=== PATIENT | female | born 1960 | race Caucasian/White ===

== ENCOUNTER 2016-07-27 08:21 | Inpatient (IN) | payer OTHER ==
[~2016-07-27] VITALS: Ht 165.1 cm; Wt 99.5 kg
[2016-07-27] VITALS (7 sets, daily range): BP systolic 125–168; BP diastolic 61–96; PULSE 62–98; RESP 16–25; TEMP 97.1–98; O2SAT 91–99
[~2016-07-27 08:21] MED LIST: ASPI81TA11 PO; MEDR4PAK3 PO; NAPR550 PO; ROBA750T3 PO; TRAM50 PO
--- NOTE | 2016-07-27 08:39 | PD ---
HPI Chief Complaint: Chest Pain Time Seen by Provider: 08:31 Travel History International Travel<30 days: No Contact w/Intl Traveler<30days: No Traveled to known affect area: No History of Present Illness HPI 55-year-old female here with complaint of chest pain. Patient states that she has been ill for approximately one week with "flulike symptoms". Describes nausea, vomiting, anorexia, chest congestion, cough, subjective fevers and chills. Overall the symptoms have improved and yesterday she was actually feeling close to back to normal. This morning she woke up with a burning epigastric discomfort that radiates up into the chest with nausea. No vomiting. The pain also radiates into the back and the left subscapular region. She denies any history of gastritis, pancreatitis, hepatobiliary pathology, peptic ulcer disease. No known history of cardiac pathology. Pain is currently 5 out of 10, burning in nature. Fairly constant. PFSH Past Medical History Diminished Hearing: No Kidney Stones: Yes Musculoskeletal: Yes (SCIATICA) Tetanus Vaccination: < 5 Years Menopausal: Yes Tubal Ligation: Yes Past Surgical History Appendectomy: Yes Section: Yes ( one) Tonsillectomy: Yes Other Surgery: Yes (BREAST AUGMENTATION) Social History Alcohol Use: No (SOCIALLY) Tobacco Use: Yes (10-12 CIGARETTES DAILY) Substance Use: No Allergies-Medications (Allergen,Severity, Reaction): Coded Allergies: Penicillin (Verified Allergy, Severe, EDEMA, 07/27/16) Reported Meds & Prescriptions Reported Meds & Active Scripts Active No Active Prescriptions or Reported Medications Review of Systems Except as stated in HPI: all other systems reviewed are Neg Physical Exam Narrative GENERAL: Obese female in no acute distress SKIN: Warm and dry. HEAD: Normocephalic. EYES: No scleral icterus. No injection or drainage. ENT: Mucous membranes pink and moist. NECK: Supple CARDIOVASCULAR: Regular rate and rhythm. No murmur appreciated. RESPIRATORY: No accessory muscle use. Clear to auscultation. Breath sounds equal bilaterally. GASTROINTESTINAL: Abdomen soft, epigastric and right upper quadrant tenderness to palpation without rebound or guarding. Obese. MUSCULOSKELETAL: Reproducible tenderness to palpation in the left subscapular region. Moves all extremity's normally without edema NEUROLOGICAL: Awake and alert. Normal speech. PSYCHIATRIC: Appropriate mood and affect; insight and judgment normal. Data Data Last Documented VS Vital Signs Date Time Temp Pulse Resp B/P Pulse Ox O2 Delivery O2 Flow Rate FiO2 07/27/16 09:01 78 20 133/69 98 07/27/16 08:26 97.8 Orders Electrocardiogram (07/27/16 08:34) Complete Blood Count With Diff (07/27/16 08:34) Comprehensive Metabolic Panel (07/27/16 08:34) Magnesium (Mg) (07/27/16 08:34) Prothrombin Time / Inr (Pt) (07/27/16 08:34) Act Partial Throm Time (Ptt) (07/27/16 08:34) Troponin I (07/27/16 08:34) Lipase (07/27/16 08:34) Chest, Single Ap (07/27/16 08:34) Ecg Monitoring (07/27/16 08:34) Bilateral Bp Monitoring (07/27/16 08:34) Iv Access Insert/Monitor (07/27/16 08:34) Oximetry (07/27/16 08:34) Aspirin Chew (Aspirin Chew) (07/27/16 08:45) Sodium Chloride 0.9% Flush (Ns Flush) (07/27/16 08:45) Morphine Inj (Morphine Inj) (07/27/16 08:45) Ondansetron Inj (Zofran Inj) (07/27/16 08:45) Pantoprazole Inj (Protonix Inj) (07/27/16 08:45) Pantoprazole Inj (Protonix Inj) (07/27/16 08:48) Ondansetron Inj (Zofran Inj) (07/27/16 08:48) Aspirin Chew (Aspirin Chew) (07/27/16 08:48) Morphine Inj (Morphine Inj) (07/27/16 08:49) Us Abdomen Gallbladder (07/27/16 ) Hepatitis Profile (07/27/16 09:18) Alcohol (Ethanol) (07/27/16 09:18) Morphine Inj (Morphine Inj) (07/27/16 09:30) Diphenhydramine Inj (Benadryl Inj) (07/27/16 09:30) Metoclopramide Inj (Reglan Inj) (07/27/16 09:30) NPO (07/27/16 09:23) Ciprofloxacin 400 Mg Premix (Cipro 400 M (07/27/16 10:30) Metronidazole 500 Mg Inj (Flagyl 500 Mg (07/27/16 10:30) Labs Laboratory Tests Test 07/27/16 07/27/16 08:44 09:30 White Blood Count 11.8 TH/MM3 Red Blood Count 5.45 MIL/MM3 Hemoglobin 15.6 GM/DL Hematocrit 46.1 % Mean Corpuscular Volume 84.5 FL Mean Corpuscular Hemoglobin 28.7 PG Mean Corpuscular Hemoglobin 33.9 % Concent Red Cell Distribution Width 14.1 % Platelet Count 436 TH/MM3 Mean Platelet Volume 6.7 FL Neutrophils (%) (Auto) 61.8 % Lymphocytes (%) (Auto) 19.1 % Monocytes (%) (Auto) 15.9 % Eosinophils (%) (Auto) 2.4 % Basophils (%) (Auto) 0.8 % Neutrophils # (Auto) 7.3 TH/MM3 Lymphocytes # (Auto) 2.3 TH/MM3 Monocytes # (Auto) 1.9 TH/MM3 Eosinophils # (Auto) 0.3 TH/MM3 Basophils # (Auto) 0.1 TH/MM3 CBC Comment DIFF FINAL Differential Comment Prothrombin Time 11.1 SEC Prothromb Time International 1.0 RATIO Ratio Activated Partial 29.4 SEC Thromboplast Time Sodium Level 135 MEQ/L Potassium Level 4.1 MEQ/L Chloride Level 98 MEQ/L Carbon Dioxide Level 29.0 MEQ/L Anion Gap 8 MEQ/L Blood Urea Nitrogen 9 MG/DL Creatinine 0.67 MG/DL Estimat Glomerular Filtration 91 ML/MIN Rate Random Glucose 103 MG/DL Calcium Level 8.6 MG/DL Magnesium Level 2.2 MG/DL Total Bilirubin 0.6 MG/DL Aspartate Amino Transf 510 U/L (AST/SGOT) Alanine Aminotransferase 503 U/L (ALT/SGPT) Alkaline Phosphatase 225 U/L Troponin I LESS THAN 0.02 NG/ML Total Protein 7.9 GM/DL Albumin 3.4 GM/DL Lipase 1295 U/L Ethyl Alcohol Level LESS THAN 3 MG/DL MDM Medical Decision Making Medical Screen Exam Complete: Yes Emergency Medical Condition: Yes Medical Record Reviewed: Yes Differential Diagnosis 55-year-old female here with approximately 2 hours of a burning epigastric discomfort radiated up into the chest and left subscapular region after one week of flulike symptoms. Differential includes gastritis, pancreatitis, hepatobiliary pathology, peptic ulcer disease, ACS, musculoskeletal and less likely PE or dissection. Narrative Course Patient placed on monitor, IV established and blood obtained. A twelve-lead EKG shows sinus rhythm without notable ST abnormalities, normal intervals. Patient was given 4 mg Zofran, 2 mg morphine, 324 mg aspirin, IV PPI. Portable chest x-ray was obtained that by my read shows no acute abnormalities. CBC, CMP , lipase, magnesium, troponin, coags obtained and notable for AST 510, ALT 503, alkaline phosphatase 225, lipase 1295. Patient denies again any history of hepatobiliary or pancreatic pathology. Hepatitis panel was added given her elevated LFTs as well as blood alcohol level. Patient so uncomfortable and treated with additional morphine, Benadryl, Reglan. Ultrasound of the gallbladder showed minimal sludge in the gallbladder with mild gallbladder wall thickening. No pericholecystic fluid or sonographic Graff sign. Patient was covered with Aravind Strauss for possible early cholecystitis and admitted for management of acute pancreatitis, GI consult, etc. Diagnosis Primary Impression: Acute pancreatitis Qualified Code: K85.90 - Acute pancreatitis without infection or necrosis, unspecified pancreatitis type Additional Impressions: Gallbladder sludge Thickening of wall of gallbladder Admitting Information Admitting Physician Requests: Admit Scripts No Active Prescriptions or Reported Meds Devorah Buitrago MD Jul 27, 2016 08:39
[2016-07-27] MEDS ORDERED: PANTOPRAZOLE SODIUM 40 MG VIAL IVP ONE (08:45)
[2016-07-27] MEDS ORDERED: ASPIRIN 81 MG CHEW TAB PO ONE (08:45)
[2016-07-27] MEDS ORDERED: ONDANSETRON HCL 4 MG/2 ML VIAL IVP ONE (08:45)
[2016-07-27] MEDS ORDERED: MORPHINE SULFATE 4 MG/ML INJ IV PUSH ONE ×2 (08:45→09:30)
[2016-07-27] MEDS ORDERED: PANTOPRAZOLE SODIUM 40 MG VIAL ONE (08:48)
[2016-07-27] MEDS ORDERED: ONDANSETRON HCL 4 MG/2 ML VIAL ONE (08:48)
[2016-07-27] MEDS ORDERED: ASPIRIN 81 MG CHEW TAB ONE (08:48)
[2016-07-27] MEDS ORDERED: MORPHINE SULFATE 4 MG/ML INJ ONE (08:49)
[2016-07-27] MEDS: SODIUM CHLORIDE 0.9% FLUSH 5 ML FLUSH IVF PRN ×2 (08:56→10:13)
[2016-07-27 08:57] LABS: AUTOMATED NEUTROPHIL # 7.3 TH/MM3 (1.8-7.7); BASOPHIL # 0.1 TH/MM3 (0-0.2); BASOPHIL % 0.8 % (0.0-2.0); EOSINOPHIL # 0.3 TH/MM3 (0-0.4); EOSINOPHIL % 2.4 % (0.0-4.0); HEMATOCRIT 46.1 % (35.0-46.0); HEMO FLAGS DIFF FINAL; LYMPH % 19.1 % (9.0-44.0); LYMPHOCYTE # 2.3 TH/MM3 (1.0-4.8); MEAN CELL VOLUME 84.5 FL (80.0-100.0); MEAN CORPUSCULAR HEMOGLOBIN 28.7 PG (27.0-34.0); MEAN CORPUSCULAR HGB CONC 33.9 % (32.0-36.0); MONO % 15.9 % (0.0-8.0); NEUT % 61.8 % (16.0-70.0); PLATELET COUNT 436 TH/MM3 (150-450); RED BLOOD COUNT 5.45 MIL/MM3 (4.00-5.30); RED CELL DISTRIBUTION WIDTH 14.1 % (11.6-17.2); WHITE BLOOD COUNT 11.8 TH/MM3 (4.0-11.0)
[2016-07-27 09:08] LABS: APTT (PATIENT) 29.4 SEC (24.3-30.1); PROTHROMBIN TIME - PATIENT 11.1 SEC (9.8-11.6)
[2016-07-27 09:12] LABS: ANION GAP 8 MEQ/L (5-15); AST (GOT) 510 U/L (15-37); CHLORIDE 98 MEQ/L (98-107); GLOMERULAR FILTRATION RATE 91 ML/MIN (>89); MAGNESIUM 2.2 MG/DL (1.5-2.5); POTASSIUM 4.1 MEQ/L (3.5-5.1); SODIUM (NA) 135 MEQ/L (136-145)
[2016-07-27 09:13] LABS: BLOOD UREA NITROGEN 9 MG/DL (7-18)
[2016-07-27 09:16] LABS: ALKALINE PHOSPHATASE 225 U/L (45-117); ALT (GPT) 503 U/L (10-53); TOTAL BILIRUBIN ADULT 0.6 MG/DL (0.2-1.0)
[2016-07-27] MEDS ORDERED: diphenhydrAMINE HCL 50 MG/ML VIAL IVP ONE (09:30)
[2016-07-27] MEDS ORDERED: METOCLOPRAMIDE HCL 10 MG/2 ML VIAL IVP ONE (09:30)
--- NOTE | 2016-07-27 09:32 | RADRPT ---
EXAM DATE/TIME: 07/27/2016 08:52 [facility] COMPARISON: CHEST SINGLE AP, August 24, 2014, 23:53. INDICATIONS : Chest pain. MEDICAL HISTORY : None. SURGICAL HISTORY : None. ENCOUNTER: Initial ACUITY: 1 day PAIN SCORE: 8/10 LOCATION: Bilateral chest FINDINGS: A single view of the chest demonstrates the lungs to be symmetrically aerated without evidence of mas s, infiltrate or effusion. The cardiomediastinal contours are unremarkable. Osseous structures are intact. CONCLUSION: No acute disease. Vargas Zuniga MD FACR on July 27, 2016 at 9:30 Board Certified Radiologist. This report was verified electronically.
--- NOTE | 2016-07-27 10:24 | RADRPT ---
EXAM DATE/TIME: 07/27/2016 09:45 [facility] COMPARISON: No previous studies available for comparison. INDICATIONS : Right upper quadrant pain. MEDICAL HISTORY : Renal calculi. SURGICAL HISTORY : Tubal ligation. section. Tonsillectomy. Appendectomy. Breast augmentation. ENCOUNTER: Initial ACUITY: 2 days PAIN SCORE: 5/10 LOCATION: Right upper quadrant MEASUREMENTS: LIVER: 18.1 cm length COMMON DUCT: 5 mm RIGHT KIDNEY: 9.6 x 5.3 x 5.4 cm FINDINGS: LIVER: Normal echotexture without focal lesion or ductal dilatation. COMMON DUCT: No intraluminal mass or stone visualized. GALLBLADDER: Minimal sludge in the gallbladder without stones. There is mild gallbladder wall thickening. PANCREAS: The visualized portions are within normal limits. RIGHT KIDNEY: No evidence of hydronephrosis, stone, or mass. CONCLUSION: Minimal sludge in the gallbladder with mild gallbladder wall thickening. There is no tenderness over the gallbladder. Vargas Zuniga MD FACR on July 27, 2016 at 10:21 Board Certified Radiologist. This report was verified electronically.
[2016-07-27] MEDS ORDERED: CIPROFLOXACIN 400 MG PREMIX 200 ML IV ONE (10:30)
[2016-07-27] MEDS ORDERED: metroNIDAZOLE 500 MG INJ 100 ML IV ONE (10:30)
[2016-07-27] MEDS ORDERED: NALOXONE HCL 0.4 MG/ML AMP IV PRN (10:45)
[2016-07-27] MEDS ORDERED: BISACODYL 10 MG SUPP PR PRN (10:45)
[2016-07-27] MEDS ORDERED: ACETAMINOPHEN 325 MG TAB PO PRN (10:45)
[2016-07-27] MEDS ORDERED: SODIUM CHLORIDE 0.9% FLUSH 5 ML FLUSH FLUSH PRN (10:45)
[2016-07-27] MEDS ORDERED: IOHEXOL 350 MG/ML 10 ML VIAL (for RAD DIAG) IV ONE (11:29)
--- NOTE | 2016-07-27 11:51 | RADRPT ---
EXAM DATE/TIME: 07/27/2016 11:12 [facility] COMPARISON: US ABDOMEN - GALLBLADDER, July 27, 2016, 9:45. INDICATIONS : Chest and abdomen pain. IV CONTRAST: 100 cc Omnipaque 350 (iohexol) IV ORAL CONTRAST: No oral contrast ingested. RADIATION DOSE: 9.96 CTDIvol (mGy) MEDICAL HISTORY : None SURGICAL HISTORY : Appendectomy. ENCOUNTER: Initial ACUITY: 1 day PAIN SCALE: 5/10 LOCATION: Abdomen. TECHNIQUE: Volumetric scanning of the abdomen was performed. Using automated exposure control and adjustment of the mA and/or kV according to patient size, radiation dose was kept as low as reasonably achievable to obtain optimal diagnostic quality images. FINDINGS: The lung bases are clear. Liver is free of focal defects. Spleen and pancreas are unremarkable. There is a gallstone in an abnormal gallbladder. There is gallbladder wall thickening with inflammat ory stranding evident suspicious for acute cholecystitis. There is symmetrical renal function. Small, less than 1 cm, apparent right renal cyst is noted. CONCLUSION: 1. CT scan would be consistent with an acute cholecystitis. Correlation is suggested. 2. There is no evidence for pancreatitis. Vargas Zuniga MD FACR on July 27, 2016 at 11:43 Board Certified Radiologist. This report was verified electronically.
[2016-07-27] MEDS: ONDANSETRON HCL 4 MG/2 ML VIAL IVP PRN ×2 (11:56→16:23)
[2016-07-27] MEDS: HYDROmorphone HCL PF 1 MG/ML VIAL IV PUSH PRN ×4 (11:57→23:16)
--- NOTE | 2016-07-27 14:31 | PD.CONS ---
General Surgery Consult Reason for consultation: Evaluate for cholecystitis. Patient is a 55-year-old lady who began feeling poorly approximately week ago; she attributed the initial symptoms to the flu with multiple episodes of nausea and vomiting minimal abdominal pain, and development of an upper respiratory tract infection. She had intermittent fevers during a period of time. She developed abdominal pain over the last 24 hours which has been centered in the mid abdomen and radiating straight through to her back. She has had no further nausea or vomiting. Past medical history significant for previous open appendectomy at age 14 as well as . She's had no major medical illnesses requiring hospitalization. He takes no medications. Her only known allergies to penicillin which causes a rash. Examination: patient is afebrile blood pressure and heart rate and normal. LUNGS: Clear to percussion and auscultation HEART: Regular rate and rhythm the ABDOMEN: The patient's abdomen is tender in the mid epigastrium with no guarding or rebound. She has minimal right upper quadrant tenderness. Last 24 hours Impressions Chest X-Ray 07/27/16 0834 Signed Impressions: Service Date/Time: Wednesday, July 27, 2016 08:52 - CONCLUSION: No acute disease. Vargas Zuniga MD FACR Gall Bladder Ultrasound 07/27/16 0000 Signed Impressions: Service Date/Time: Wednesday, July 27, 2016 09:45 - CONCLUSION: Minimal sludge in the gallbladder with mild gallbladder wall thickening. There is no tenderness over the gallbladder. Vargas Zuniga MD FACR Laboratory Tests Test 07/27/16 07/27/16 08:44 09:30 White Blood Count 11.8 TH/MM3 Red Blood Count 5.45 MIL/MM3 Hemoglobin 15.6 GM/DL Hematocrit 46.1 % Mean Corpuscular Volume 84.5 FL Mean Corpuscular Hemoglobin 28.7 PG Mean Corpuscular Hemoglobin 33.9 % Concent Red Cell Distribution Width 14.1 % Platelet Count 436 TH/MM3 Mean Platelet Volume 6.7 FL Neutrophils (%) (Auto) 61.8 % Lymphocytes (%) (Auto) 19.1 % Monocytes (%) (Auto) 15.9 % Eosinophils (%) (Auto) 2.4 % Basophils (%) (Auto) 0.8 % Neutrophils # (Auto) 7.3 TH/MM3 Lymphocytes # (Auto) 2.3 TH/MM3 Monocytes # (Auto) 1.9 TH/MM3 Eosinophils # (Auto) 0.3 TH/MM3 Basophils # (Auto) 0.1 TH/MM3 CBC Comment DIFF FINAL Differential Comment Prothrombin Time 11.1 SEC Prothromb Time International 1.0 RATIO Ratio Activated Partial 29.4 SEC Thromboplast Time Sodium Level 135 MEQ/L Potassium Level 4.1 MEQ/L Chloride Level 98 MEQ/L Carbon Dioxide Level 29.0 MEQ/L Anion Gap 8 MEQ/L Blood Urea Nitrogen 9 MG/DL Creatinine 0.67 MG/DL Estimat Glomerular Filtration 91 ML/MIN Rate Random Glucose 103 MG/DL Calcium Level 8.6 MG/DL Magnesium Level 2.2 MG/DL Total Bilirubin 0.6 MG/DL Aspartate Amino Transf 510 U/L (AST/SGOT) Alanine Aminotransferase 503 U/L (ALT/SGPT) Alkaline Phosphatase 225 U/L Troponin I LESS THAN 0.02 NG/ML Total Protein 7.9 GM/DL Albumin 3.4 GM/DL Lipase 1295 U/L Ethyl Alcohol Level LESS THAN 3 MG/DL Impression: 55-year-old lady with what appears to be gallstone pancreatitis. She has a mildly thick-walled gallbladder as well as sludge within the lumen with no evidence of stones. Her common bile duct is relatively normal at 5 mm. Plan: The patient will be given clear liquids today. Repeat laboratory work will be obtained in the morning. If she improves rapidly we may consider surgery this week, otherwise she will be discharged to be followed as an outpatient. Kvng Walton MD Jul 27, 2016 14:31
--- NOTE | 2016-07-27 14:34 | EKG ---
Date Performed: 07/27/2016 Time Performed: 08:29:21 PTAGE: 55 years EKG: Sinus rhythm NORMAL ECG PREVIOUS TRACING : 08/24/2014 23.41 Since previous tracing, no significant change noted DOCTOR: Toni Guajardo Interpretating Date/Time 07/27/2016 14:33:44
--- NOTE | 2016-07-27 17:43 | HHI.HP ---
HPI Service [facility] Primary Care Physician Unknown Admission Diagnosis pancreatitis, possible cholecystitis Chief Complaint: abdominal pain Travel History International Travel<30 Days: No Contact w/Intl Traveler <30 Da: No Traveled to Known Affected Are: No History of Present Illness Patient is a pleasant 55-year-old female who reported to the ER today with complaint of abdominal pain. Patient developed mild abdominal pain associated with nausea and vomiting approximately one week ago. Initially patient felt that she had flu. Over the last week patient has had intermittent fevers. During the 24 hours prior to admission patient developed worsening abdominal pain with radiation to her back. Currently no nausea or vomiting. Patient's lipase is elevated at 1295. There is elevation of the patient's transaminases. Patient denies prior episodes of pancreatitis. Patient is not a drinker. Patient underwent CT of the abdomen today (07/27/16) which shows findings consistent with cholecystitis. He should admitted to [facility] for further evaluation and treatment area Review of Systems Constitutional: DENIES: Diaphoretic episodes, Fatigue, Fever, Weight gain, Weight loss, Chills, Dizziness, Change in appetite, Night Sweats Endocrine: DENIES: Heat/cold intolerance, Polydipsia, Polyuria, Polyphagia Eyes: DENIES: Blurred vision, Diplopia, Eye inflammation, Eye pain, Vision loss , Photosensitivity, Double Vision Ears, nose, mouth, throat: DENIES: Tinnitus, Hearing loss, Vertigo, Nasal discharge, Oral lesions, Throat pain, Hoarseness, Ear Pain, Running Nose, Epistaxis, Sinus Pain, Toothache, Odynophagia Respiratory: DENIES: Apneas, Cough, Snoring, Wheezing, Hemoptysis, Sputum production, Shortness of breath Cardiovascular: DENIES: Chest pain, Palpitations, Syncope, Dyspnea on Exertion , PND, Lower Extremity Edema, Orthopnea, Claudication Gastrointestinal: COMPLAINS OF: Abdominal pain, Nausea, Vomiting, DENIES: Black stools, Bloody stools, BRB per rectum, Constipation, Diarrhea, GERD, Reflux, Difficulty Swallowing, Anorexia Genitourinary: DENIES: Urinary frequency, Urinary incontinence, Urgency, Hematuria, Dysuria, Nocturia Musculoskeletal: DENIES: Joint pain, Muscle aches, Stiffness, Joint Swelling, Back pain, Neck pain Integumentary: DENIES: Abnormal pigmentation, Pruritus, Rash, Nail changes, Breast masses, Breast skin changes, Nipple discharge Hematologic/lymphatic: DENIES: Bruising, Lymphadenopathy Immunologic/allergic: DENIES: Eczema, Urticaria Neurologic: DENIES: Abnormal gait, Headache, Localized weakness, Paresthesias, Seizures, Speech Problems, Tremor, Poor Balance Psychiatric: DENIES: Anxiety, Confusion, Mood changes, Depression, Hallucinations, Agitation, Suicidal Ideation, Homicidal Ideation, Delusions, History of Bipolar, History of Schizophrenia Past Family Social History Past Medical History 1) sciatica Past Surgical History 1) appendectomy at age 14 2) section Reported Medications Reported Meds & Active Scripts Active No Active Prescriptions or Reported Medications Allergies: Coded Allergies: Penicillin (Verified Allergy, Severe, EDEMA, 07/27/16) Family History Noncontributory Social History - Patient smokes one half pack per day - denies alcohol - No illicit street drugs Physical Exam Vital Signs Vital Signs Date Time Temp Pulse Resp B/P Pulse Ox O2 Delivery O2 Flow Rate FiO2 07/27/16 12:27 68 24 134/79 96 Room Air 07/27/16 09:01 78 20 133/69 98 07/27/16 08:38 99 07/27/16 08:26 97.8 98 25 168/96 98 Physical Exam GENERAL: This is a well-nourished, well-developed patient, in no apparent distress. SKIN: No rashes, ecchymoses or lesions. Cool and dry. HEAD: Atraumatic. Normocephalic. No temporal or scalp tenderness. EYES: Pupils equal round and reactive. Extraocular motions intact. No scleral icterus. No injection or drainage. ENT: Nose without bleeding, purulent drainage or septal hematoma. Throat without erythema, tonsillar hypertrophy or exudate. Uvula midline. Airway patent. NECK: Trachea midline. No JVD or lymphadenopathy. Supple, nontender, no meningeal signs. CARDIOVASCULAR: Regular rate and rhythm without murmurs, gallops, or rubs. RESPIRATORY: Clear to auscultation. Breath sounds equal bilaterally. No wheezes , rales, or rhonchi. GASTROINTESTINAL: Abdomen soft, non-tender, nondistended. No hepato-splenomegaly , or palpable masses. No guarding. MUSCULOSKELETAL: Extremities without clubbing, cyanosis, or edema. No joint tenderness, effusion, or edema noted. No calf tenderness. Negative Homans sign bilaterally. NEUROLOGICAL: Awake and alert. Cranial nerves II through XII intact. Motor and sensory grossly within normal limits. Five out of 5 muscle strength in all muscle groups. Normal speech. Laboratory Laboratory Tests Test 07/27/16 07/27/16 08:44 09:30 White Blood Count 11.8 Red Blood Count 5.45 Hemoglobin 15.6 Hematocrit 46.1 Mean Corpuscular Volume 84.5 Mean Corpuscular Hemoglobin 28.7 Mean Corpuscular Hemoglobin 33.9 Concent Red Cell Distribution Width 14.1 Platelet Count 436 Mean Platelet Volume 6.7 Neutrophils (%) (Auto) 61.8 Lymphocytes (%) (Auto) 19.1 Monocytes (%) (Auto) 15.9 Eosinophils (%) (Auto) 2.4 Basophils (%) (Auto) 0.8 Neutrophils # (Auto) 7.3 Lymphocytes # (Auto) 2.3 Monocytes # (Auto) 1.9 Eosinophils # (Auto) 0.3 Basophils # (Auto) 0.1 CBC Comment DIFF FINAL Differential Comment Prothrombin Time 11.1 Prothromb Time International 1.0 Ratio Activated Partial 29.4 Thromboplast Time Sodium Level 135 Potassium Level 4.1 Chloride Level 98 Carbon Dioxide Level 29.0 Anion Gap 8 Blood Urea Nitrogen 9 Creatinine 0.67 Estimat Glomerular Filtration 91 Rate Random Glucose 103 Calcium Level 8.6 Magnesium Level 2.2 Total Bilirubin 0.6 Aspartate Amino Transf 510 (AST/SGOT) Alanine Aminotransferase 503 (ALT/SGPT) Alkaline Phosphatase 225 Troponin I LESS THAN 0.02 Total Protein 7.9 Albumin 3.4 Lipase 1295 Ethyl Alcohol Level LESS THAN 3 Result Diagram: 07/27/16 0844 07/27/16 0844 Imaging Last Impressions Chest X-Ray 07/27/16 0834 Signed Impressions: Service Date/Time: Wednesday, July 27, 2016 08:52 - CONCLUSION: No acute disease. Vargas Zuniga MD FACR Gall Bladder Ultrasound 07/27/16 0000 Signed Impressions: Service Date/Time: Wednesday, July 27, 2016 09:45 - CONCLUSION: Minimal sludge in the gallbladder with mild gallbladder wall thickening. There is no tenderness over the gallbladder. Vargas Zuniga MD FACR Abdomen CT 07/27/16 0000 Signed Impressions: Service Date/Time: Wednesday, July 27, 2016 11:12 - CONCLUSION: 1. CT scan would be consistent with an acute cholecystitis. Correlation is suggested. 2. There is no evidence for pancreatitis. Vargas Zuniga MD FACR Septic Shock Reassessment Heart: Regular rate and rhythm Lungs: Clear Skin: Warm Peripheral Pulses: Bounding Right Radial Bounding Left Radial Bounding Right Popliteal Bounding Left Popliteal Bounding Right Dorsalis Pedis Bounding Left Dorsalis Pedis Bounding Right Posterior Tibial Bounding Left Posterior Tibial Capillary Refill: Brisk Assessment and Plan Problem List: (1) Pancreatitis, gallstone Status: Acute Plan: - CT scan (07/27/16) mild thickening of the gallbladder - Elevated serum lipase 1,295 - Elevated transaminase - Appreciate input from general surgery, Dr. Kvng Walton - liquid diet - Continue intravenous fluids - Repeat BMP, lipase, liver enzymes in the a.m. - lauren carrasco - Possible cholecystectomy defer to general surgery (2) Bronchitis Status: Acute Plan: - IV steroids - levaquin - duonebs q6h and q2h prn - repeat CXR in AM Physician Certification 2 Midnight Certification Type: Admission for Inpatient Services Order for Inpatient Services The services are ordered in accordance with Medicare regulations or non- Medicare payer requirements, as applicable. In the case of services not specified as inpatient-only, they are appropriately provided as inpatient services in accordance with the 2-midnight benchmark. Estimated LOS (days): 3 3 days is the estimated time the patient will need to remain in the hospital, assuming treatment plan goals are met and no additional complications. Post-Hospital Plan: Home Demarcus Acharya DO Jul 27, 2016 17:43
[2016-07-27] MEDS: metroNIDAZOLE 500 MG INJ 100 ML IV SCH ×2 (18:22→23:16)
[2016-07-27] MEDS ORDERED: RESP: ALBUTEROL 2.5 MG/IPRATROPIUM 0.5 MG NEB (PRN) NEB (18:30)
[2016-07-27] MEDS: RESP: ALBUTEROL 2.5 MG/IPRATROPIUM 0.5 MG NEB (SCH) NEB ×2 (18:40→20:00)
[2016-07-27] MEDS: NS + KCL 20 MEQ INJ 1,000 ML IV SCH (18:50)
[2016-07-27] MEDS: methylPREDNISolone SOD SUCC 40 MG/1 ML VIAL IV PUSH SCH ×2 (18:50→21:00)
[2016-07-27] MEDS: SODIUM CHLORIDE 0.9% FLUSH 5 ML FLUSH FLUSH SCH (21:00)
[2016-07-28] VITALS (8 sets, daily range): BP systolic 104–116; BP diastolic 53–69; PULSE 54–70; RESP 16–20; TEMP 96–98.2; O2SAT 93–98
[2016-07-28] MEDS: LEVOFLOXACIN 500 MG PREMIX INJ 100 ML IV SCH (00:40)
[2016-07-28] MEDS: metroNIDAZOLE 500 MG INJ 100 ML IV SCH ×4 (06:21→23:35)
[2016-07-28] MEDS: NS + KCL 20 MEQ INJ 1,000 ML IV SCH ×2 (06:21→17:15)
[2016-07-28 07:13] LABS: AUTOMATED NEUTROPHIL # 10.7 TH/MM3 (1.8-7.7); BASOPHIL % 0.2 % (0.0-2.0); HEMATOCRIT 39.4 % (35.0-46.0); HEMO FLAGS DIFF FINAL; LYMPH % 8.9 % (9.0-44.0); LYMPHOCYTE # 1.2 TH/MM3 (1.0-4.8); MEAN CELL VOLUME 83.8 FL (80.0-100.0); MEAN CORPUSCULAR HEMOGLOBIN 28.1 PG (27.0-34.0); MEAN CORPUSCULAR HGB CONC 33.6 % (32.0-36.0); MONO % 11.8 % (0.0-8.0); NEUT % 79.1 % (16.0-70.0); PLATELET COUNT 394 TH/MM3 (150-450); WHITE BLOOD COUNT 13.5 TH/MM3 (4.0-11.0)
[2016-07-28] MEDS: RESP: ALBUTEROL 2.5 MG/IPRATROPIUM 0.5 MG NEB (SCH) NEB ×3 (07:21→20:30)
[2016-07-28 07:45] LABS: BICARBONATE 26.6 MEQ/L (21.0-32.0); INDIRECT BILIRUBIN 0.3 MG/DL (0.0-0.8); MAGNESIUM 2.2 MG/DL (1.5-2.5); POTASSIUM 4.5 MEQ/L (3.5-5.1); TOTAL BILIRUBIN ADULT 1.6 MG/DL (0.2-1.0)
[2016-07-28] MEDS: methylPREDNISolone SOD SUCC 40 MG/1 ML VIAL IV PUSH SCH ×2 (07:50→21:01)
[2016-07-28] MEDS: SODIUM CHLORIDE 0.9% FLUSH 5 ML FLUSH FLUSH SCH ×2 (07:50→21:00)
--- NOTE | 2016-07-28 10:07 | RADRPT ---
EXAM DATE/TIME: 07/28/2016 09:20 [facility] COMPARISON: CT ABDOMEN W CONTRAST, July 27, 2016, 11:12. INDICATIONS : Cough MEDICAL HISTORY : None. SURGICAL HISTORY : None. ENCOUNTER: Initial ACUITY: 3 days PAIN SCORE: 0/10 LOCATION: Bilateral chest FINDINGS: The lungs are under aerated but clear. The heart and pulmonary vascularity are normal. Portions of the bony skeleton visualized are unremarkable. CONCLUSION: Underaerated, otherwise negative. Vargas Zuniga MD FACR on July 28, 2016 at 9:39 Board Certified Radiologist. This report was verified electronically.
--- NOTE | 2016-07-28 11:06 | HHI.PR ---
Subjective Remarks says she feels better. abdomen pain better still with cough/congestion. Objective Vitals heart reg lung rhonci lois abd s/nt/nabs ext no edema Vital Signs Date Time Temp Pulse Resp B/P Pulse Ox O2 Delivery O2 Flow Rate FiO2 07/28/16 08:00 96.0 54 20 105/63 97 07/28/16 07:22 96 Nasal Cannula 2.00 07/28/16 04:00 98.2 60 18 106/64 95 07/28/16 00:00 97.9 57 18 116/69 96 07/27/16 20:00 07/27/16 19:00 97.1 65 18 125/61 99 07/27/16 18:40 95 21 07/27/16 17:35 62 16 132/74 91 Room Air 07/27/16 12:27 68 24 134/79 96 Room Air 07/27/16 07/27/16 07/28/16 15:00 23:00 07:00 Intake Total 720 ml 1000 ml Balance 720 ml 1000 ml Intake Oral 720 ml 1000 ml # Voids 3 2 Result Diagram: 07/28/16 0641 07/28/16 0641 Imaging Last Impressions Chest X-Ray 07/27/16 0834 Signed Impressions: Service Date/Time: Wednesday, July 27, 2016 08:52 - CONCLUSION: No acute disease. Vargas Zuniga MD FACR Gall Bladder Ultrasound 07/27/16 0000 Signed Impressions: Service Date/Time: Wednesday, July 27, 2016 09:45 - CONCLUSION: Minimal sludge in the gallbladder with mild gallbladder wall thickening. There is no tenderness over the gallbladder. Vargas Zuniga MD FACR Abdomen CT 07/27/16 0000 Signed Impressions: Service Date/Time: Wednesday, July 27, 2016 11:12 - CONCLUSION: 1. CT scan would be consistent with an acute cholecystitis. Correlation is suggested. 2. There is no evidence for pancreatitis. Vargas Zuniga MD FACR A/P Problem List: (1) Pancreatitis, gallstone Status: Acute Plan: Pt presents with midepigastric pain though to back and also right shoulder - CT scan (07/27/16) mild thickening of the gallbladder and sludge admitted for gallstone pancreatitis. today pt pain better but lft and lipase increasing. will evaluate cbd with mrcp and possible gi evaluation. npo and ivf dvt prophylaxis (2) Bronchitis Status: Acute Plan: cont nebs/abx/steroid sputum cx Omar Emerson MD Jul 28, 2016 11:06
--- NOTE | 2016-07-28 16:07 | HHI.PR ---
Subjective Subjective Notes The patient was in MRCP when I came to visit her. By the nurses report she has had minimal if any pain today. She has been anxious to leave for home. Objective Vitals/I&O Vital Signs Date Time Temp Pulse Resp B/P Pulse Ox O2 Delivery O2 Flow Rate FiO2 07/28/16 12:00 96.7 70 20 104/65 98 07/28/16 07:22 Nasal Cannula 2.00 07/27/16 18:40 21 Labs Laboratory Tests Test 07/28/16 06:41 White Blood Count 13.5 Red Blood Count 4.70 Hemoglobin 13.2 Hematocrit 39.4 Mean Corpuscular Volume 83.8 Mean Corpuscular Hemoglobin 28.1 Mean Corpuscular Hemoglobin 33.6 Concent Red Cell Distribution Width 14.0 Platelet Count 394 Mean Platelet Volume 6.7 Neutrophils (%) (Auto) 79.1 Lymphocytes (%) (Auto) 8.9 Monocytes (%) (Auto) 11.8 Eosinophils (%) (Auto) 0.0 Basophils (%) (Auto) 0.2 Neutrophils # (Auto) 10.7 Lymphocytes # (Auto) 1.2 Monocytes # (Auto) 1.6 Eosinophils # (Auto) 0.0 Basophils # (Auto) 0.0 CBC Comment DIFF FINAL Differential Comment Sodium Level 138 Potassium Level 4.5 Chloride Level 104 Carbon Dioxide Level 26.6 Anion Gap 7 Blood Urea Nitrogen 8 Creatinine 0.58 Estimat Glomerular Filtration 107 Rate Random Glucose 131 Calcium Level 8.0 Magnesium Level 2.2 Total Bilirubin 1.6 Direct Bilirubin 1.3 Indirect Bilirubin 0.3 Aspartate Amino Transf 533 (AST/SGOT) Alanine Aminotransferase 856 (ALT/SGPT) Alkaline Phosphatase 253 Total Protein 6.7 Albumin 2.8 Lipase 1863 Date/Time Procedure Status Source Growth 07/28/16 12:10 Gram Stain - Final Resulted Sputum Expectorated Sputum 07/28/16 12:10 Sputum Culture Resulted Sputum Expectorated Sputum Pending A/P Assessment and Plan In view of her increasing liver function tests and total bilirubin of 1.6 with a direct of 1.3 as well as increasing white blood count, I am concerned regarding the possibility of a common bile duct stone. I discussed the situation with CHENTE Cohen of GI medicine and have place of formal consultation for GI evaluation in addition of the MRCP. At the present time he does not appear to me that she requires cholecystectomy and I will await the recommendations and findings of GI medicine. Kvng Walton MD Jul 28, 2016 16:07
--- NOTE | 2016-07-28 16:15 | RADRPT ---
EXAM DATE/TIME: 07/28/2016 15:39 [facility] COMPARISON: No previous studies available for comparison. INDICATIONS : Pancreatitis. Pain radiating from chest/abdomen to back. MEDICAL HISTORY : None. SURGICAL HISTORY : Appendectomy. section. ENCOUNTER: Subsequent ACUITY: 2 day PAIN SCORE: 5/10 LOCATION: chest/abdomen and back TECHNIQUE: Multiplanar, multisequence magnetic resonance imaging of the abdomen was performed. High-resolution 3D dataset was utilized to reconstruct maximum-intensity projection (MIP) images. FINDINGS: INTRAHEPATIC BILE DUCTS: Within normal limits. No significant anatomical variant is present. EXTRAHEPATIC BILE DUCTS: The common bile duct measures 6.4 mm. No stone or filling defect are identified however there is slig ht distortion of the common bile duct at the ampulla. GALLBLADDER: Numerous stones are identified within the gallbladder. LIVER: Liver demonstrates slight decrease in signal intensity on opposed phase imaging. There are no focal l esions. PANCREAS: The main pancreatic duct is normal in size. There is no significant anatomical variant. Signal inte nsity is within normal limits. No mass is visualized on this non-contrast exam. OTHER: The remaining visualized structures demonstrate no acute abnormality on this non-contrast exam. CONCLUSION: Cholelithiasis. No evidence of biliary obstruction or choledocholithiasis however the distal common bile duct at the ampulla was not optimally visualized. Mild hepatic steatosis. Alessandro Overton MD on July 28, 2016 at 16:05 Board Certified Radiologist. This report was verified electronically.
--- NOTE | 2016-07-28 22:00 | PD.CONS ---
HPI History of Present Illness This is a 55 year old female who presents to the emergency room with complaints of a one-week history of upper abdominal pain with nausea and vomiting no hematemesis coffee-ground emesis no melena or hematochezia no fever no chills no prior history of any GI problems no NSAID use or aspirin use currently she is feeling better in bed she denies any abdominal trauma PFSH Past Medical History Sciatica Past Surgical History Appendectomy and Coded Allergies: Penicillin (Verified Allergy, Severe, EDEMA, 07/27/16) Medications Current Medications Aspirin (Aspirin Chew) 324 mg ONCE ONCE PO Last administered on 07/27/16 08:57 ; Start 07/27/16 at 08:45; Stop 07/27/16 at 08:46; Status DC IV Flush (NS Flush) 2 ml UNSCH PRN IVF FLUSH AFTER USING IV ACCESS Last administered on 07/27/16 10:13; Start 07/27/16 at 08:45; Stop 07/27/16 at 10:52; Status DC Morphine Sulfate (Morphine Inj) 2 mg ONCE ONCE IV PUSH Last administered on 08:56; Start 07/27/16 at 08:45; Stop 07/27/16 at 08:46; Status DC Ondansetron HCl (Zofran Inj) 4 mg ONCE ONCE IVP Last administered on 07/27/16 08:56; Start 07/27/16 at 08:45; Stop 07/27/16 at 08:46; Status DC Pantoprazole Sodium (Protonix Inj) 40 mg ONCE ONCE IVP Last administered on 08:56; Start 07/27/16 at 08:45; Stop 07/27/16 at 08:46; Status DC Pantoprazole Sodium (Protonix Inj) 40 mg STK-MED ONCE .ROUTE ; Start 07/27/16 at 08:48; Stop 07/27/16 at 09:00; Status DC Ondansetron HCl (Zofran Inj) 4 mg STK-MED ONCE .ROUTE ; Start 07/27/16 at 08:48; Stop 07/27/16 at 09:00; Status DC Aspirin (Aspirin Chew) 324 mg STK-MED ONCE .ROUTE ; Start 07/27/16 at 08:48; Stop 07/27/16 at 09:00; Status DC Morphine Sulfate (Morphine Inj) 4 mg STK-MED ONCE .ROUTE ; Start 07/27/16 at 08: 49; Stop 07/27/16 at 09:00; Status DC Morphine Sulfate (Morphine Inj) 4 mg ONCE ONCE IV PUSH Last administered on 10:13; Start 07/27/16 at 09:30; Stop 07/27/16 at 09:31; Status DC Diphenhydramine HCl (Benadryl Inj) 50 mg ONCE ONCE IVP Last administered on 10:13; Start 07/27/16 at 09:30; Stop 07/27/16 at 09:31; Status DC Metoclopramide HCl 10 mg 10 mg ONCE ONCE IVP Last administered on 07/27/16 10: 13; Start 07/27/16 at 09:30; Stop 07/27/16 at 09:31; Status DC Ciprofloxacin/ Dextrose 200 ml @ 200 mls/hr ONCE ONCE IV Last administered on 07/27/16 13:00; Start 07/27/16 at 10:30; Stop 07/27/16 at 11:29; Status DC Metronidazole (Flagyl 500 Mg Inj) 100 ml @ 100 mls/hr ONCE ONCE IV Last administered on 07/27/16 11:47; Start 07/27/16 at 10:30; Stop 07/27/16 at 11:29; Status DC IV Flush (NS Flush) 2 ml UNSCH PRN FLUSH FLUSH AFTER USING IV ACCESS; Start 07/27/16 at 10:45 IV Flush (NS Flush) 2 ml BID FLUSH Last administered on 07/28/16 21:00; Start 07/27/16 at 21:00 Acetaminophen (Tylenol) 650 mg Q4H PRN PO TEMP > 100.4; Start 07/27/16 at 10:45 Ondansetron HCl (Zofran Inj) 4 mg Q6H PRN IVP NAUSEA OR VOMITING Last administered on 07/27/16 16:23; Start 07/27/16 at 10:45 Bisacodyl (Dulcolax Supp) 10 mg DAILY PRN RI CONSTIPATION; Start 07/27/16 at 10: 45 Naloxone HCl (Narcan Inj) 0.4 mg UNSCH PRN IV SEE LABEL COMMENTS; Start at 10:45 Hydromorphone HCl (Dilaudid Pf Inj) 0.5 mg Q4H PRN IV PUSH pain 1-10 Last administered on 07/27/16 16:23; Start 07/27/16 at 10:45; Stop 07/27/16 at 18:31; Status DC Iohexol 100 ml 100 ml STK-MED ONCE IV ; Start 07/27/16 at 11:29; Stop 07/27/16 at 11:30; Status DC Levofloxacin/ Dextrose 100 ml @ 100 mls/hr Q24H IV Last administered on 00:40; Start 07/28/16 at 01:00 Metronidazole (Flagyl 500 Mg Inj) 100 ml @ 100 mls/hr Q6H IV Last administered on 07/28/16 17:15; Start 07/27/16 at 18:00 Hydromorphone HCl (Dilaudid Pf Inj) 1 mg Q4H PRN IV PUSH pain 1-10 Last administered on 07/27/16 23:16; Start 07/27/16 at 18:30 Methylprednisolone Sodium Succinate (SoluMEDROL INJ) 40 mg Q12HR IV PUSH Last administered on 07/28/16 21:01; Start 07/27/16 at 19:00 Albuterol/ Ipratropium (Duoneb Neb) 1 ampule Q6HR WHILE AWAKE NEB NEB Last administered on 07/28/16 20:30; Start 07/27/16 at 18:30 Albuterol/ Ipratropium 1 ampule 1 ampule Q2HR NEB PRN NEB sob or wheezing; Start 07/27/16 at 18:30 Potassium Chloride/Sodium Chloride (NS + KCl 20 Meq Inj) 1,000 ml @ 85 mls/hr [id number] IV Last administered on 07/28/16 17:15; Start 07/27/16 at 18:45 Family History Noncontributory Social History Patient smokes but no alcohol or drugs Review of Systems ROS Review of systems Patient denies any headache dizziness blurry vision, denies any chest pain shortness of breath cough fever chills, Denies any palpitations or fatigue denies any polyuria dysuria hematuria, denies any numbness tingling or weakness, denies any skin rash pruritus or jaundice, denies any easy bruising or bleeding tendency, denies any recent change in mood GI Exam Vitals I&O Vital Signs Date Time Temp Pulse Resp B/P Pulse Ox O2 Delivery O2 Flow Rate FiO2 07/28/16 20:31 95 21 07/28/16 16:00 97.6 56 18 112/59 93 07/28/16 12:00 96.7 70 20 104/65 98 07/28/16 08:00 96.0 54 20 105/63 97 07/28/16 07:22 96 Nasal Cannula 2.00 07/28/16 04:00 98.2 60 18 106/64 95 07/28/16 00:00 97.9 57 18 116/69 96 I/O 07/27/16 07/27/16 07/27/16 07/28/16 07/28/16 07/28/16 07:00 15:00 23:00 07:00 15:00 23:00 Intake Total 720 ml 1000 ml 1779 ml Balance 720 ml 1000 ml 1779 ml Intake Oral 720 ml 1000 ml 360 ml IV Total 1419 ml # Voids 3 2 4 # Bowel Movements 0 Imaging Last Impressions Chest X-Ray 07/28/16 0800 Signed Impressions: Service Date/Time: Thursday, July 28, 2016 09:20 - CONCLUSION: Underaerated, otherwise negative. Vargas Zuniga MD FACR Cholangiopancreatography MRI 07/28/16 0000 Signed Impressions: Service Date/Time: Thursday, July 28, 2016 15:39 - CONCLUSION: Cholelithiasis. No evidence of biliary obstruction or choledocholithiasis however the distal common bile duct at the ampulla was not optimally visualized. Mild hepatic steatosis. Alessandro Overton MD Gall Bladder Ultrasound 07/27/16 0000 Signed Impressions: Service Date/Time: Wednesday, July 27, 2016 09:45 - CONCLUSION: Minimal sludge in the gallbladder with mild gallbladder wall thickening. There is no tenderness over the gallbladder. Vargas Zuniga MD FACR Abdomen CT 07/27/16 0000 Signed Impressions: Service Date/Time: Wednesday, July 27, 2016 11:12 - CONCLUSION: 1. CT scan would be consistent with an acute cholecystitis. Correlation is suggested. 2. There is no evidence for pancreatitis. Vargas Zuniga MD FACR Laboratory Test 07/28/16 06:41 White Blood Count 13.5 TH/MM3 Red Blood Count 4.70 MIL/MM3 Hemoglobin 13.2 GM/DL Hematocrit 39.4 % Mean Corpuscular Volume 83.8 FL Mean Corpuscular Hemoglobin 28.1 PG Mean Corpuscular Hemoglobin 33.6 % Concent Red Cell Distribution Width 14.0 % Platelet Count 394 TH/MM3 Mean Platelet Volume 6.7 FL Neutrophils (%) (Auto) 79.1 % Lymphocytes (%) (Auto) 8.9 % Monocytes (%) (Auto) 11.8 % Eosinophils (%) (Auto) 0.0 % Basophils (%) (Auto) 0.2 % Neutrophils # (Auto) 10.7 TH/MM3 Lymphocytes # (Auto) 1.2 TH/MM3 Monocytes # (Auto) 1.6 TH/MM3 Eosinophils # (Auto) 0.0 TH/MM3 Basophils # (Auto) 0.0 TH/MM3 CBC Comment DIFF FINAL Differential Comment Sodium Level 138 MEQ/L Potassium Level 4.5 MEQ/L Chloride Level 104 MEQ/L Carbon Dioxide Level 26.6 MEQ/L Anion Gap 7 MEQ/L Blood Urea Nitrogen 8 MG/DL Creatinine 0.58 MG/DL Estimat Glomerular Filtration 107 ML/MIN Rate Random Glucose 131 MG/DL Calcium Level 8.0 MG/DL Magnesium Level 2.2 MG/DL Total Bilirubin 1.6 MG/DL Direct Bilirubin 1.3 MG/DL Indirect Bilirubin 0.3 MG/DL Aspartate Amino Transf 533 U/L (AST/SGOT) Alanine Aminotransferase 856 U/L (ALT/SGPT) Alkaline Phosphatase 253 U/L Total Protein 6.7 GM/DL Albumin 2.8 GM/DL Lipase 1863 U/L Date/Time Procedure Status Source Growth 07/28/16 12:10 Gram Stain - Final Resulted Sputum Expectorated Sputum 07/28/16 12:10 Sputum Culture Resulted Sputum Expectorated Sputum Pending Physical Examination HEENT: Pupils round and reactive to light; normocephalic; atraumatic; no jaundice. Throat is clear. NECK: Neck is supple, no JVD, no lymphadenopathy. CHEST: Chest is clear to auscultation and percussion. CARDIAC: Regular rate and rhythm with no murmur gallop or rubs. ABDOMEN: Soft, nondistended, nontender; no hepatosplenomegaly; bowel sounds are present in all four quadrants. EXTREMITIES: No clubbing, cyanosis, or edema. SKIN: Normal; no rash; no jaundice. EDGE SANDER: No focal deficits; alert and oriented times three. Assessment and Plan Plan Patient presenting with abdominal pain nausea vomiting is found to have elevated liver function tests and elevated pancreatic enzymes and on imaging studies she is noted to have an abnormal gallbladder most suggestive of acute cholecystitis and MRCP is also done and this does not show any filling defects in the common bile duct At this point it seems to me like the patient probably passed a stone there does not appear to be any retained stones in the bile duct although if her numbers continue to go up we will pursue an ERCP as the distal bile duct was not clearly seen on the x-rays Patient has underlying acute cholecystitis and she probably will require cholecystectomy at some point we will defer to general surgery regarding this issue Continue with current supportive care and pain management Monitor labs Further recommendations shall depend on her hospital course Arnie Phillips MD Jul 28, 2016 22:00
[2016-07-28] MEDS: HYDROmorphone HCL PF 1 MG/ML VIAL IV PUSH PRN (23:36)
[2016-07-29] VITALS (8 sets, daily range): BP systolic 109–156; BP diastolic 59–85; PULSE 50–60; RESP 16–24; TEMP 96.3–97.9; O2SAT 95–99
[2016-07-29] MEDS: LEVOFLOXACIN 500 MG PREMIX INJ 100 ML IV SCH (00:43)
[2016-07-29] MEDS: NS + KCL 20 MEQ INJ 1,000 ML IV SCH ×2 (00:43→18:37)
[2016-07-29] MEDS: metroNIDAZOLE 500 MG INJ 100 ML IV SCH ×3 (05:10→18:37)
[2016-07-29 07:10] LABS: HEMATOCRIT 39.9 % (35.0-46.0); MEAN CELL VOLUME 85.1 FL (80.0-100.0); MEAN CORPUSCULAR HEMOGLOBIN 27.6 PG (27.0-34.0); MEAN CORPUSCULAR HGB CONC 32.5 % (32.0-36.0); PLATELET COUNT 393 TH/MM3 (150-450); RED BLOOD COUNT 4.69 MIL/MM3 (4.00-5.30); REVIEW FLAG FINAL; WHITE BLOOD COUNT 16.8 TH/MM3 (4.0-11.0)
[2016-07-29] MEDS: RESP: ALBUTEROL 2.5 MG/IPRATROPIUM 0.5 MG NEB (SCH) NEB ×2 (07:20→20:51)
[2016-07-29 07:42] LABS: INDIRECT BILIRUBIN 0.3 MG/DL (0.0-0.8); TOTAL BILIRUBIN ADULT 1.7 MG/DL (0.2-1.0)
[2016-07-29] MEDS: methylPREDNISolone SOD SUCC 40 MG/1 ML VIAL IV PUSH SCH ×2 (09:12→21:32)
[2016-07-29] MEDS: SODIUM CHLORIDE 0.9% FLUSH 5 ML FLUSH FLUSH SCH ×2 (09:12→21:00)
--- NOTE | 2016-07-29 09:24 | HHI.PR ---
Subjective Remarks demands d/c. denies abdomen pain still coughing. Objective Vitals heent neg heart reg lung rhonci abd s/nt ext no edema Vital Signs Date Time Temp Pulse Resp B/P Pulse Ox O2 Delivery O2 Flow Rate FiO2 07/29/16 08:00 97.7 51 16 132/59 96 07/29/16 07:21 95 21 07/29/16 05:00 96.3 60 16 125/66 96 07/29/16 00:30 97.0 57 16 109/70 95 07/28/16 21:00 96.9 63 16 106/53 95 07/28/16 20:31 95 21 07/28/16 16:00 97.6 56 18 112/59 93 07/28/16 12:00 96.7 70 20 104/65 98 07/28/16 07/28/16 07/29/16 15:00 23:00 07:00 Intake Total 1779 ml 720 ml Balance 1779 ml 720 ml Intake Oral 360 ml 720 ml IV Total 1419 ml # Voids 4 3 2 # Bowel Movements 0 Result Diagram: 07/29/16 0649 07/28/16 0641 Imaging Last Impressions Chest X-Ray 07/27/16 0834 Signed Impressions: Service Date/Time: Wednesday, July 27, 2016 08:52 - CONCLUSION: No acute disease. Vargas Zuniga MD FACR Gall Bladder Ultrasound 07/27/16 0000 Signed Impressions: Service Date/Time: Wednesday, July 27, 2016 09:45 - CONCLUSION: Minimal sludge in the gallbladder with mild gallbladder wall thickening. There is no tenderness over the gallbladder. Vargas Zuniga MD FACR Abdomen CT 07/27/16 0000 Signed Impressions: Service Date/Time: Wednesday, July 27, 2016 11:12 - CONCLUSION: 1. CT scan would be consistent with an acute cholecystitis. Correlation is suggested. 2. There is no evidence for pancreatitis. Vargas Zuniga MD FACR A/P Problem List: (1) Pancreatitis, gallstone Status: Acute Plan: Pt presents with midepigastric pain though to back and also right shoulder - CT scan (07/27/16) mild thickening of the gallbladder and sludge admitted for gallstone pancreatitis. lipase nml today but lft rising...mrcp unable to eval near ampulla GI reccomends ercp today pt demands food, refusing ercp and wants to go home she can leave AMA and f/u I explained that she may get seriously ill by leaving w/out full evaluation and she was ok with it. She is mentally competent to make her decisions. (2) Bronchitis Status: Acute Plan: cont nebs/abx/steroid sputum cx Omar Emerson MD Jul 29, 2016 09:24
[2016-07-29] MEDS ORDERED: LEVA500T PO (09:26)
[2016-07-29] MEDS ORDERED: METR-1 PO (09:26)
[2016-07-29] MEDS ORDERED: PRED10 PO (09:26)
--- NOTE | 2016-07-29 09:27 | HHI.DCPOC ---
Discharge Care Plan Diagnosis: (1) Pancreatitis, gallstone (2) Acute cholecystitis (3) LFT elevation (4) Bronchitis Goals to Promote Your Health * To prevent worsening of your condition and complications * To maintain your health at the optimal level Directions to Meet Your Goals Take your medications as prescribed Follow your dietary instruction Follow activity as directed Keep your appointments as scheduled Take your immunizations and boosters as scheduled If your symptoms worsen call your PCP, if no PCP go to Urgent Care Center or Emergency Room Smoking is Dangerous to Your Health. Avoid second hand smoke Call the 24-hour hour crisis hotline for domestic abuse at Omar Emerson MD Jul 29, 2016 09:27
[2016-07-29] MEDS: ONDANSETRON HCL 4 MG/2 ML VIAL IVP PRN ×2 (10:42→17:32)
[2016-07-29] MEDS: HYDROmorphone HCL PF 1 MG/ML VIAL IV PUSH PRN ×5 (10:42→22:00)
--- NOTE | 2016-07-29 11:24 | HHI.PR ---
Subjective Subjective Notes The patient states that she has minimal pain. He does still occasionally occurs in the midepigastrium and occasionally radiates to her back but is less severe than previously. She's had no nausea or vomiting. She is tolerating liquids without problem. She has no other complaints other than needing to see her dog. Objective Vitals/I&O Vital Signs Date Time Temp Pulse Resp B/P Pulse Ox O2 Delivery O2 Flow Rate FiO2 07/29/16 08:00 97.7 51 16 132/59 96 07/29/16 07:21 21 07/28/16 07:22 Nasal Cannula 2.00 Labs Laboratory Tests Test 07/29/16 06:49 White Blood Count 16.8 Red Blood Count 4.69 Hemoglobin 13.0 Hematocrit 39.9 Mean Corpuscular Volume 85.1 Mean Corpuscular Hemoglobin 27.6 Mean Corpuscular Hemoglobin 32.5 Concent Red Cell Distribution Width 14.0 Platelet Count 393 Mean Platelet Volume 6.8 Total Bilirubin 1.7 Direct Bilirubin 1.4 Indirect Bilirubin 0.3 Aspartate Amino Transf 485 (AST/SGOT) Alanine Aminotransferase 990 (ALT/SGPT) Alkaline Phosphatase 240 Total Protein 7.1 Albumin 3.0 Lipase 322 Date/Time Procedure Status Source Growth 07/28/16 12:10 Gram Stain - Final Resulted Sputum Expectorated Sputum 07/28/16 12:10 Sputum Culture Resulted Sputum Expectorated Sputum Pending Cardiovascular: Regular Lungs: Clear Narrative Exam Her abdomen is minimally to moderately tender in the midepigastrium with no guarding or rebound A/P Assessment and Plan Impression: Resolving gallstone pancreatitis with a normalizing lipase. She still has increased liver function tests which are gradually changing on a daily basis. She also has an increased white blood count compared to yesterday , therefore consideration has to be given to the possibility of a distal common bile duct stone. Plan: I will discuss the situation with Dr. Watson regarding timing of her leaving the hospital to visit her dog, which is a major concern to her. She will be seen by Dr. Phillips in the near future. Kvng Walton MD Jul 29, 2016 11:24
[2016-07-29] MEDS: LORazepam 2 MG/ML VIAL IV PUSH PRN ×2 (12:00→19:39)
[2016-07-29] MEDS ORDERED: HYDROmorphone HCL PF 1 MG/ML VIAL SQ ONE (15:30)
[2016-07-29] MEDS ORDERED: HYDROmorphone HCL PF 1 MG/ML VIAL IV PUSH ONE (15:30)
--- NOTE | 2016-07-29 21:25 | HHI.GIFU ---
Subjective Remarks Complains of upper abdominal discomfort radiating to the right but otherwise doing well feeling slightly better she got anxious a little earlier in the day Objective Vitals I&O Vital Signs Date Time Temp Pulse Resp B/P Pulse Ox O2 Delivery O2 Flow Rate FiO2 07/29/16 18:37 16 07/29/16 16:00 97.9 50 20 149/85 97 07/29/16 12:02 16 07/29/16 12:00 97.6 53 24 153/79 97 07/29/16 08:00 97.7 51 16 132/59 96 07/29/16 07:21 95 21 07/29/16 05:00 96.3 60 16 125/66 96 07/29/16 00:30 97.0 57 16 109/70 95 I/O 07/28/16 07/28/16 07/28/16 07/29/16 07/29/16 07/29/16 07:00 15:00 23:00 07:00 15:00 23:00 Intake Total 1000 ml 1779 ml 720 ml 679 ml 548 ml Balance 1000 ml 1779 ml 720 ml 679 ml 548 ml Intake Oral 1000 ml 360 ml 720 ml 200 ml IV Total 1419 ml 479 ml 548 ml # Voids 2 4 3 2 8 # Bowel Movements 0 0 Laboratory Laboratory Tests Test 07/29/16 06:49 White Blood Count 16.8 Red Blood Count 4.69 Hemoglobin 13.0 Hematocrit 39.9 Mean Corpuscular Volume 85.1 Mean Corpuscular Hemoglobin 27.6 Mean Corpuscular Hemoglobin 32.5 Concent Red Cell Distribution Width 14.0 Platelet Count 393 Mean Platelet Volume 6.8 Total Bilirubin 1.7 Direct Bilirubin 1.4 Indirect Bilirubin 0.3 Aspartate Amino Transf 485 (AST/SGOT) Alanine Aminotransferase 990 (ALT/SGPT) Alkaline Phosphatase 240 Total Protein 7.1 Albumin 3.0 Lipase 322 Date/Time Procedure Status Source Growth 07/28/16 12:10 Gram Stain - Final Resulted Sputum Expectorated Sputum 07/28/16 12:10 Sputum Culture - Preliminary Resulted Sputum Expectorated Sputum HEAVY GROWTH NORMAL RESPIRATORY SHANKAR... Imaging Last Impressions Chest X-Ray 07/28/16 0800 Signed Impressions: Service Date/Time: Thursday, July 28, 2016 09:20 - CONCLUSION: Underaerated, otherwise negative. Vargas Zuniga MD FACR Cholangiopancreatography MRI 07/28/16 0000 Signed Impressions: Service Date/Time: Thursday, July 28, 2016 15:39 - CONCLUSION: Cholelithiasis. No evidence of biliary obstruction or choledocholithiasis however the distal common bile duct at the ampulla was not optimally visualized. Mild hepatic steatosis. Alessandro Overton MD Gall Bladder Ultrasound 07/27/16 0000 Signed Impressions: Service Date/Time: Wednesday, July 27, 2016 09:45 - CONCLUSION: Minimal sludge in the gallbladder with mild gallbladder wall thickening. There is no tenderness over the gallbladder. Vargas Zuniga MD FACR Abdomen CT 07/27/16 0000 Signed Impressions: Service Date/Time: Wednesday, July 27, 2016 11:12 - CONCLUSION: 1. CT scan would be consistent with an acute cholecystitis. Correlation is suggested. 2. There is no evidence for pancreatitis. Vargas Zuniga MD FACR Physical Exam CHEST: Chest is clear to auscultation and percussion. CARDIAC: Regular rate and rhythm with no murmur gallop or rubs. ABDOMEN: Soft, nondistended, mild upper abdominal tenderness no rebound or guarding; no hepatosplenomegaly; bowel sounds are present in all four quadrants. EXTREMITIES: No clubbing, cyanosis, or edema. SKIN: Normal; no rash; no jaundice. BOBBIN FIXER: No focal deficits; alert and oriented times three. Assessment and Plan Plan Patient presenting with abdominal pain nausea vomiting is found to have elevated liver function tests and elevated pancreatic enzymes and on imaging studies she is noted to have an abnormal gallbladder most suggestive of acute cholecystitis and MRCP is also done and this does not show any filling defects in the common bile duct LFTs appear to be borderline at this point with a slight increase in the bilirubin I think the best approach at this point would be to pursue the ERCP risks benefits and alternatives were discussed with the patient and she is agreeable this will be done first thing in the morning Patient has underlying acute cholecystitis and she probably will require cholecystectomy at some point we will defer to general surgery regarding this issue Continue with current supportive care and pain management Monitor labs Further recommendations shall depend on her hospital course Arnie Phillips MD Jul 29, 2016 21:25
[2016-07-30] VITALS: BP 122/71; PULSE 52; RESP 16; TEMP 97; O2SAT 94
[2016-07-30] MEDS: metroNIDAZOLE 500 MG INJ 100 ML IV SCH ×4 (00:08→18:00)
[2016-07-30] MEDS: ONDANSETRON HCL 4 MG/2 ML VIAL IVP PRN ×2 (00:25→07:17)
[2016-07-30] MEDS: HYDROmorphone HCL PF 1 MG/ML VIAL IV PUSH PRN ×6 (00:29→18:14)
[2016-07-30] MEDS: LEVOFLOXACIN 500 MG PREMIX INJ 100 ML IV SCH (02:00)
[2016-07-30 04:00] VITALS: BP 126/65; PULSE 54; RESP 16; TEMP 98.1; O2SAT 94
[2016-07-30 05:06] LABS: HEMATOCRIT 37.6 % (35.0-46.0); MEAN CELL VOLUME 84.4 FL (80.0-100.0); MEAN CORPUSCULAR HEMOGLOBIN 28.1 PG (27.0-34.0); MEAN CORPUSCULAR HGB CONC 33.3 % (32.0-36.0); PLATELET COUNT 361 TH/MM3 (150-450); RED BLOOD COUNT 4.45 MIL/MM3 (4.00-5.30); RED CELL DISTRIBUTION WIDTH 14.3 % (11.6-17.2); REVIEW FLAG FINAL; WHITE BLOOD COUNT 12.6 TH/MM3 (4.0-11.0)
[2016-07-30] MEDS: NS + KCL 20 MEQ INJ 1,000 ML IV SCH (05:35)
[2016-07-30 05:39] LABS: ALKALINE PHOSPHATASE 225 U/L (45-117); ALT (GPT) 791 U/L (10-53); ANION GAP 9 MEQ/L (5-15); AST (GOT) 258 U/L (15-37); BICARBONATE 25.5 MEQ/L (21.0-32.0); BLOOD UREA NITROGEN 7 MG/DL (7-18); CHLORIDE 105 MEQ/L (98-107); GLOMERULAR FILTRATION RATE 119 ML/MIN (>89); POTASSIUM 4.3 MEQ/L (3.5-5.1); SODIUM (NA) 139 MEQ/L (136-145); TOTAL BILIRUBIN ADULT 2.2 MG/DL (0.2-1.0)
[2016-07-30] MEDS: RESP: ALBUTEROL 2.5 MG/IPRATROPIUM 0.5 MG NEB (SCH) NEB ×3 (07:48→19:55)
[2016-07-30] MEDS ORDERED: MIDAZOLAM HCL 2 MG/2 ML VIAL ONE (08:45)
[2016-07-30] MEDS ORDERED: ACETAMINOPHEN 1000 MG/100 ML VIAL IV ONE (08:46)
[2016-07-30] MEDS ORDERED: DEXAMETHASONE SOD PHOS 4 MG/ML VIAL ONE (08:54)
[2016-07-30] MEDS: methylPREDNISolone SOD SUCC 40 MG/1 ML VIAL IV PUSH SCH ×2 (09:00→21:54)
[2016-07-30] MEDS: SODIUM CHLORIDE 0.9% FLUSH 5 ML FLUSH FLUSH SCH ×2 (09:00→21:54)
[2016-07-30] MEDS ORDERED: PROPOFOL 200 MG/20 ML AMP IV ONE (09:34)
[2016-07-30] MEDS ORDERED: IOHEXOL 350 MG/ML 100 ML BTL (for RAD DIAG) OTHER ONE (09:36)
[2016-07-30] MEDS: *RESP: ALBUTEROL 2.5 MG/3 ML NEB (PRN) PERIprocedural Use ONLY NEB ONE (10:07)
--- NOTE | 2016-07-30 10:08 | RADRPT ---
EXAM DATE/TIME: 07/30/2016 09:36 [facility] COMPARISON: MRCP W/O CONTRAST, July 28, 2016, 15:39. INDICATIONS : Obstruction. FLUORO TIME: 2.50 minutes IMAGE COUNT: 3 CONTRAST: Instilled by Ordering Physician MEDICAL HISTORY : None. SURGICAL HISTORY : None. ENCOUNTER: Initial ACUITY: 1 day PAIN SCORE: Non-responsive. LOCATION: Right upper quadrant FINDINGS: An ERCP was performed by the ordering physician. The images demonstrate normal filling of the common bile duct and biliary system with excretion of co ntrast into the gallbladder. No evidence of filling defect within the distal common duct. A CONCLUSION: ERCP as above. Sejal King MD on July 30, 2016 at 10:05 Board Certified Radiologist. This report was verified electronically.
--- NOTE | 2016-07-30 10:09 | PD.PROCEDR ---
GI Procedure REFERRING PHYSICIAN Dr. Acharya PROCEDURE PERFORMED ERCP with sphincterotomy and balloon extraction INDICATION FOR PROCEDURE Elevated liver function tests PROCEDURE: The procedure, risks and benefits were discussed with Ms. Jin and informed consent was obtained. Anesthesia sedated her with Diprivan. She was placed in the left lateral decubitus position. ERCP: Patient was placed in a prone position. The Pentax videoscope was introduced through the oropharynx and advanced to the second portion of the duodenum where the ampula was identified. [] FINDINGS: The ampulla appeared to be unremarkable and within normal limits we were able to obtain easy cannulation of the common bile duct which appeared to be slightly prominent with possible filling defect at the distal portion and so a generous sphincterotomy was performed and as I did that specks of sludge came through there were no obvious large filling defects and the balloon extraction using a size 11-1/2 mm revealed no stones but again just specks of sludge we were able to obtain good filling of the gallbladder and the intrahepatics were normal ESTIMATED BLOOD LOSS: None SPECIMENS REMOVED: None COMPLICATIONS: None IMPRESSION: Biliary sludge PLAN: Supportive care Further recommendations as per the Gen. surgery team Monitor labs Arnie Phillips MD Jul 30, 2016 10:09
[2016-07-30] MEDS ORDERED: fentaNYL CITRATE 250 MCG/5 ML AMP ONE (10:18)
[2016-07-30] MEDS ORDERED: DO NOT ADM ANY ANTICOAGULANT DRUGS XX PRN (11:00)
[2016-07-30 12:00] VITALS: BP 151/71; PULSE 63; RESP 18; TEMP 97.4; O2SAT 93
--- NOTE | 2016-07-30 14:57 | HHI.PR ---
Subjective Subjective Notes The patient underwent ERCP earlier. She is now awake and alert. She states that she has much less pain than previously, although she still complains of pain in the midepigastrium and slightly in the right upper quadrant but not as bad. She has had no nausea or vomiting. She continues to pass flatus and has no other complaints. Objective Vitals/I&O Vital Signs Date Time Temp Pulse Resp B/P Pulse Ox O2 Delivery O2 Flow Rate FiO2 07/30/16 12:00 97.4 63 18 151/71 93 07/30/16 11:15 Nasal Cannula 2 07/29/16 07:21 21 Labs Laboratory Tests Test 07/30/16 04:24 White Blood Count 12.6 Red Blood Count 4.45 Hemoglobin 12.5 Hematocrit 37.6 Mean Corpuscular Volume 84.4 Mean Corpuscular Hemoglobin 28.1 Mean Corpuscular Hemoglobin 33.3 Concent Red Cell Distribution Width 14.3 Platelet Count 361 Mean Platelet Volume 7.2 Sodium Level 139 Potassium Level 4.3 Chloride Level 105 Carbon Dioxide Level 25.5 Anion Gap 9 Blood Urea Nitrogen 7 Creatinine 0.53 Estimat Glomerular Filtration 119 Rate Random Glucose 121 Calcium Level 8.1 Total Bilirubin 2.2 Aspartate Amino Transf 258 (AST/SGOT) Alanine Aminotransferase 791 (ALT/SGPT) Alkaline Phosphatase 225 Total Protein 6.8 Albumin 2.9 Date/Time Procedure Status Source Growth 07/28/16 12:10 Gram Stain - Final Complete Sputum Expectorated Sputum 07/28/16 12:10 Sputum Culture - Final Complete Sputum Expectorated Sputum HEAVY GROWTH NORMAL RESPIRATORY [facility] Radiology Last 24 hours Impressions GI Procedure 07/30/16 0000 Signed Impressions: Service Date/Time: Saturday, July 30, 2016 09:36 - CONCLUSION: ERCP as above. Sejal King MD Cardiovascular: Regular Lungs: Clear Abdomen: Non-distended, Non-tender, BS normal Narrative Exam Her abdomen is minimally to moderately tender in the midepigastrium and slightly less so in the right upper quadrant, with no guarding or rebound. A/P Assessment and Plan Impression: Status post ERCP with retrieval of sludge from the common bile duct. She feels much better at this point and is going to require cholecystectomy, the timing which is in doubt. Plan: I will reevaluate her tomorrow. If she continues to improve, then I would like to discharge her from the hospital and see her as an outpatient to schedule her surgery electively. If she continues to worsen and we will proceed with surgery or Thursday. Kvng Walton MD Jul 30, 2016 14:57
--- NOTE | 2016-07-30 15:38 | HHI.GIFU ---
Subjective Remarks Resting in bed. Denies any nausea or abdominal pain at this time. States she really needs to go home and wants to go home today. D/W patient that her labs are trending down, but still elevated. She is very anxious to leave today ( [place]) Objective Vitals I&O Vital Signs Date Time Temp Pulse Resp B/P Pulse Ox O2 Delivery O2 Flow Rate FiO2 07/30/16 12:00 97.4 63 18 151/71 93 07/30/16 11:15 97.7 56 16 145/85 97 Nasal Cannula 2 07/30/16 11:00 56 16 144/80 97 Nasal Cannula 2 07/30/16 10:45 60 18 141/53 97 Nasal Cannula 2 07/30/16 10:30 62 19 145/84 97 Nasal Cannula 2 07/30/16 10:22 Nasal Cannula 3 07/30/16 10:15 68 22 143/84 98 Nasal Cannula 4 07/30/16 10:06 97.6 76 22 141/88 97 Nasal Cannula 4 07/30/16 05:04 18 07/30/16 04:00 98.1 54 16 126/65 94 07/30/16 00:00 97.0 52 16 122/71 94 07/29/16 20:51 96 Nasal Cannula 07/29/16 20:00 97.1 55 18 156/81 99 07/29/16 16:00 97.9 50 20 149/85 97 I/O 07/29/16 07/29/16 07/29/16 07/30/16 07/30/16 07/30/16 07:00 15:00 23:00 07:00 15:00 23:00 Intake Total 679 ml 1028 ml 1105 ml 980 ml Balance 679 ml 1028 ml 1105 ml 980 ml Intake Oral 200 ml 480 ml 30 ml IV Total 479 ml 548 ml 1105 ml 200 ml Other 750 ml # Voids 2 10 1 0 # Bowel Movements 0 Laboratory Laboratory Tests Test 07/30/16 04:24 White Blood Count 12.6 Red Blood Count 4.45 Hemoglobin 12.5 Hematocrit 37.6 Mean Corpuscular Volume 84.4 Mean Corpuscular Hemoglobin 28.1 Mean Corpuscular Hemoglobin 33.3 Concent Red Cell Distribution Width 14.3 Platelet Count 361 Mean Platelet Volume 7.2 Sodium Level 139 Potassium Level 4.3 Chloride Level 105 Carbon Dioxide Level 25.5 Anion Gap 9 Blood Urea Nitrogen 7 Creatinine 0.53 Estimat Glomerular Filtration 119 Rate Random Glucose 121 Calcium Level 8.1 Total Bilirubin 2.2 Aspartate Amino Transf 258 (AST/SGOT) Alanine Aminotransferase 791 (ALT/SGPT) Alkaline Phosphatase 225 Total Protein 6.8 Albumin 2.9 Date/Time Procedure Status Source Growth 07/28/16 12:10 Gram Stain - Final Complete Sputum Expectorated Sputum 07/28/16 12:10 Sputum Culture - Final Complete Sputum Expectorated Sputum HEAVY GROWTH NORMAL RESPIRATORY [facility] Imaging Last Impressions GI Procedure 07/30/16 0000 Signed Impressions: Service Date/Time: Saturday, July 30, 2016 09:36 - CONCLUSION: ERCP as above. Sejal King MD Chest X-Ray 07/28/16 0800 Signed Impressions: Service Date/Time: Thursday, July 28, 2016 09:20 - CONCLUSION: Underaerated, otherwise negative. Vargas Zuniga MD FACR Cholangiopancreatography MRI 07/28/16 0000 Signed Impressions: Service Date/Time: Thursday, July 28, 2016 15:39 - CONCLUSION: Cholelithiasis. No evidence of biliary obstruction or choledocholithiasis however the distal common bile duct at the ampulla was not optimally visualized. Mild hepatic steatosis. Alessandro Overton MD Gall Bladder Ultrasound 07/27/16 0000 Signed Impressions: Service Date/Time: Wednesday, July 27, 2016 09:45 - CONCLUSION: Minimal sludge in the gallbladder with mild gallbladder wall thickening. There is no tenderness over the gallbladder. Vargas Zuniga MD FACR Abdomen CT 07/27/16 0000 Signed Impressions: Service Date/Time: Wednesday, July 27, 2016 11:12 - CONCLUSION: 1. CT scan would be consistent with an acute cholecystitis. Correlation is suggested. 2. There is no evidence for pancreatitis. Vargas Zuniga MD FACR Physical Exam CHEST: CTA CARDIAC: RRR ABDOMEN: Soft, nondistended, mild upper abdominal tenderness no rebound or guarding; no hepatosplenomegaly; bowel sounds are present in all four quadrants. EXTREMITIES: No clubbing, cyanosis, or edema. SKIN: Normal; no rash; no jaundice. AUTOMOTIVE LIGHT MECHANIC: No focal deficits; alert and oriented times three. ([place]) Assessment and Plan Plan ASSESSMENT: - N/V with elevated LFTs and elevated lipase. Imaging studies she is noted to have an abnormal gallbladder most suggestive of acute cholecystitis and MRCP is also done and this does not show any filling defects in the common bile duct. S/P ERCP (07/29/16)---> biliary sludge- good filling of the gallbladder. Lipase 322. LFTs trending down, T. Bili 2.2, AST 258, ALT 791, Alk Phosph 225. Clinically doing well. Really wants to go home.' GS following, recommends FU as outpatient for possible lap. sushant. PLAN: - If discharged home, pt to stay on liquid diet x 2 days - FU [facility] 2 weeks - FU Dr. Walton as outpatient - If she agrees to stay, check labs in am - Notify GI of worsening pain, n/v, inability to tolerate po - Pt seen and examined by Dr. Phillips and myself and this note is written on his behalf ([place]) Physician Comments Patient seen and examined Agree with above Continue with current supportive care Monitor labs (Arnie Phillips MD) [place] Jul 30, 2016 15:38 Arnie Phillips MD Jul 30, 2016 20:37 [place] Jul 30, 2016 15:38
--- NOTE | 2016-07-30 15:49 | HHI.PR ---
Subjective Remarks doing well. Objective Vitals heart reg lung few basilar crackles abd s/nt ext no edema Vital Signs Date Time Temp Pulse Resp B/P Pulse Ox O2 Delivery O2 Flow Rate FiO2 07/30/16 12:00 97.4 63 18 151/71 93 07/30/16 11:15 97.7 56 16 145/85 97 Nasal Cannula 2 07/30/16 11:00 56 16 144/80 97 Nasal Cannula 2 07/30/16 10:45 60 18 141/53 97 Nasal Cannula 2 07/30/16 10:30 62 19 145/84 97 Nasal Cannula 2 07/30/16 10:22 Nasal Cannula 3 07/30/16 10:15 68 22 143/84 98 Nasal Cannula 4 07/30/16 10:06 97.6 76 22 141/88 97 Nasal Cannula 4 07/30/16 05:04 18 07/30/16 04:00 98.1 54 16 126/65 94 07/30/16 00:00 97.0 52 16 122/71 94 07/29/16 20:51 96 Nasal Cannula 07/29/16 20:00 97.1 55 18 156/81 99 07/29/16 16:00 97.9 50 20 149/85 97 07/29/16 07/29/16 07/30/16 15:00 23:00 07:00 Intake Total 679 ml 1028 ml 1105 ml Balance 679 ml 1028 ml 1105 ml Intake Oral 200 ml 480 ml IV Total 479 ml 548 ml 1105 ml # Voids 10 1 # Bowel Movements 0 Result Diagram: 07/30/16 0424 07/30/16 0424 Imaging Last Impressions Chest X-Ray 07/27/16 0834 Signed Impressions: Service Date/Time: Wednesday, July 27, 2016 08:52 - CONCLUSION: No acute disease. Vargas Zuniga MD FACR Gall Bladder Ultrasound 07/27/16 0000 Signed Impressions: Service Date/Time: Wednesday, July 27, 2016 09:45 - CONCLUSION: Minimal sludge in the gallbladder with mild gallbladder wall thickening. There is no tenderness over the gallbladder. Vargas Zuniga MD FACR Abdomen CT 07/27/16 0000 Signed Impressions: Service Date/Time: Wednesday, July 27, 2016 11:12 - CONCLUSION: 1. CT scan would be consistent with an acute cholecystitis. Correlation is suggested. 2. There is no evidence for pancreatitis. Vargas Zuniga MD FACR A/P Problem List: (1) Pancreatitis, gallstone Status: Acute Plan: Pt presents with midepigastric pain though to back and also right shoulder - CT scan (07/27/16) mild thickening of the gallbladder and sludge admitted for gallstone pancreatitis. ercp today with sweep of sludge from cbd and sphinterotomy clears and recheck labs in AM... if ok then d/c in AM (2) Bronchitis Status: Acute Plan: cont nebs/abx/steroid sputum cx Omar Emerson MD Jul 30, 2016 15:49
[2016-07-30 16:00] VITALS: BP 148/78; PULSE 62; RESP 16; TEMP 97.9; O2SAT 94
[2016-07-30 20:00] VITALS: BP 134/92; PULSE 63; RESP 16; TEMP 96.8; O2SAT 95
[2016-07-31 01:00] VITALS: BP 112/55; PULSE 57; RESP 16; TEMP 96.6; O2SAT 94
[2016-07-31] MEDS: metroNIDAZOLE 500 MG INJ 100 ML IV SCH ×3 (01:20→09:51)
[2016-07-31] MEDS: LEVOFLOXACIN 500 MG PREMIX INJ 100 ML IV SCH (01:20)
[2016-07-31 04:00] VITALS: BP 139/73; PULSE 55; RESP 18; TEMP 97.2; O2SAT 94
[2016-07-31 06:45] LABS: HEMATOCRIT 35.7 % (35.0-46.0); MEAN CELL VOLUME 83.7 FL (80.0-100.0); MEAN CORPUSCULAR HGB CONC 33.4 % (32.0-36.0); PLATELET COUNT 368 TH/MM3 (150-450); RED BLOOD COUNT 4.27 MIL/MM3 (4.00-5.30); RED CELL DISTRIBUTION WIDTH 14.3 % (11.6-17.2); REVIEW FLAG FINAL; WHITE BLOOD COUNT 15.4 TH/MM3 (4.0-11.0)
[2016-07-31 07:46] VITALS: O2SAT 94
[2016-07-31] MEDS: RESP: ALBUTEROL 2.5 MG/IPRATROPIUM 0.5 MG NEB (SCH) NEB (07:46)
[2016-07-31 07:54] LABS: ALT (GPT) 561 U/L (10-53); ANION GAP 7 MEQ/L (5-15); AST (GOT) 105 U/L (15-37); BICARBONATE 27.6 MEQ/L (21.0-32.0); BLOOD UREA NITROGEN 10 MG/DL (7-18); CHLORIDE 105 MEQ/L (98-107); GLOMERULAR FILTRATION RATE 105 ML/MIN (>89); SODIUM (NA) 140 MEQ/L (136-145)
[2016-07-31 07:56] LABS: ALKALINE PHOSPHATASE 173 U/L (45-117); TOTAL BILIRUBIN ADULT 0.6 MG/DL (0.2-1.0)
[2016-07-31 08:00] VITALS: BP 137/61; PULSE 58; RESP 20; TEMP 98.1; O2SAT 96
[2016-07-31] MEDS: SODIUM CHLORIDE 0.9% FLUSH 5 ML FLUSH FLUSH SCH (09:00)
[2016-07-31] MEDS: methylPREDNISolone SOD SUCC 40 MG/1 ML VIAL IV PUSH SCH (09:00)
--- NOTE | 2016-07-31 09:58 | HHI.PR ---
Subjective Remarks no pain. want to go home. Objective Vitals nad Vital Signs Date Time Temp Pulse Resp B/P Pulse Ox O2 Delivery O2 Flow Rate FiO2 07/31/16 08:00 98.1 58 20 137/61 96 07/31/16 07:46 94 21 07/31/16 04:00 97.2 55 18 139/73 94 07/31/16 01:00 96.6 57 16 112/55 94 07/30/16 20:00 96.8 63 16 134/92 95 07/30/16 16:00 97.9 62 16 148/78 94 07/30/16 12:00 97.4 63 18 151/71 93 07/30/16 11:15 97.7 56 16 145/85 97 Nasal Cannula 2 07/30/16 11:00 56 16 144/80 97 Nasal Cannula 2 07/30/16 10:45 60 18 141/53 97 Nasal Cannula 2 07/30/16 10:30 62 19 145/84 97 Nasal Cannula 2 07/30/16 10:22 Nasal Cannula 3 07/30/16 10:15 68 22 143/84 98 Nasal Cannula 4 07/30/16 10:06 97.6 76 22 141/88 97 Nasal Cannula 4 07/30/16 07/30/16 07/31/16 15:00 23:00 07:00 Intake Total 2180 ml 720 ml 480 ml Output Total 6 ml Balance 2174 ml 720 ml 480 ml Intake Oral 1230 ml 720 ml 480 ml IV Total 200 ml Other 750 ml Output Urine Total 6 ml # Voids 0 3 2 Result Diagram: 07/31/16 0605 07/31/16 0605 Imaging Last Impressions Chest X-Ray 07/27/16 0834 Signed Impressions: Service Date/Time: Wednesday, July 27, 2016 08:52 - CONCLUSION: No acute disease. Vargas Zuniga MD FACR Gall Bladder Ultrasound 07/27/16 0000 Signed Impressions: Service Date/Time: Wednesday, July 27, 2016 09:45 - CONCLUSION: Minimal sludge in the gallbladder with mild gallbladder wall thickening. There is no tenderness over the gallbladder. Vargas Zuniga MD FACR Abdomen CT 07/27/16 0000 Signed Impressions: Service Date/Time: Wednesday, July 27, 2016 11:12 - CONCLUSION: 1. CT scan would be consistent with an acute cholecystitis. Correlation is suggested. 2. There is no evidence for pancreatitis. Vargas Zuniga MD FACR A/P Problem List: (1) Pancreatitis, gallstone Status: Acute Plan: Pt presents with midepigastric pain though to back and also right shoulder - CT scan (07/27/16) mild thickening of the gallbladder and sludge admitted for gallstone pancreatitis. ercp 07/30 with sweep of sludge from cbd and sphinterotomy lft improving dc on liquids and advance f/u GI f/u gs for lap sushant (2) Bronchitis Status: Acute Plan: cont nebs/abx/steroid sputum cx Omar Emerson MD Jul 31, 2016 09:58
[2016-07-31] MEDS ORDERED: PRED10 PO (10:13)
[2016-08-14] MEDS ORDERED: CIPR-9 PO (08:30)
--- NOTE | 2016-08-18 09:26 | HHI.DS ---
Discharge Summary Admission Date Jul 27, 2016 at 10:53 Discharge Date: Jul 31, 2016 Admitting Diagnosis pancreatitis, possible cholecystitis (1) Pancreatitis, gallstone Diagnosis: Principal (2) Bronchitis Diagnosis: Principal Brief History Patient is a pleasant 55-year-old female who reported to the ER today with complaint of abdominal pain. Patient developed mild abdominal pain associated with nausea and vomiting approximately one week ago. Initially patient felt that she had flu. Over the last week patient has had intermittent fevers. During the 24 hours prior to admission patient developed worsening abdominal pain with radiation to her back. Currently no nausea or vomiting. Patient's lipase is elevated at 1295. There is elevation of the patient's transaminases. Patient denies prior episodes of pancreatitis. Patient is not a drinker. Patient underwent CT of the abdomen today (07/27/16) which shows findings consistent with cholecystitis. He should admitted to [facility] for further evaluation and treatment area Hospital Course Pt presents with midepigastric pain though to back and also right shoulder - CT scan (07/27/16) mild thickening of the gallbladder and sludge - Admitted for gallstone pancreatitis. - ercp 07/30 with sweep of sludge from cbd and sphinterotomy - lft improving....dc on liquids and advance - f/u GI.....f/u gs for lap sushant - She also had acute bronchitis and received nebs and abx for rx. ..this was much improved on d/c. Pt Condition on Discharge: Stable Discharge Disposition: Discharge Home Discharge Instructions DIET: Follow Instructions for: Full Liquid Diet Additional Diet Instructions: full liquid today then slowly advance to soft low fat diet tomorrow. Activities you can perform: Regular-No Restrictions Follow up Referrals: Gastroenterology - 1 Week @ [facility] with Arnie Phillips MD PCP Follow-up - 1 Week Surgical - 1 Week with Kvng Walton MD New Medications: Metronidazole (Flagyl) 500 Mg Tab 500 MG PO TID Infection Days 7 Ref 0 TAB Omar Emerson MD Aug 18, 2016 09:26
== END 2016-07-31 12:10 | disposition home or self-care (01) | DRG 444 ==
LOC: NEPC 08:21 → NEDA 10:53 → NEDH 15:24 → HOCB 19:18
PROVIDERS: ADMIT Hospitalist; ATTEND Hospitalist
PROC: 0FC98ZZ Extirpation of Matter from Common Bile Duct, Via Natural or Artificial Opening Endoscopic (ICD-10-PCS; principal; 2016-07-30 09:20)
DX: K80.00 Calculus of gallbladder with acute cholecystitis without obstruction (principal); K85.10 Biliary acute pancreatitis without necrosis or infection; J20.9 Acute bronchitis, unspecified; M54.30 Sciatica, unspecified side; F17.210 Nicotine dependence, cigarettes, uncomplicated; Z41.1 Encounter for cosmetic surgery; Z88.0 Allergy status to penicillin
CPT/HCPCS: 71010; 71020; 74160; 74181; 74330; 76377; 76705; 80048; 80053; 80074; 80076; 80320; 83690; 83735; 84484; 85025; 85027; 85610; 85730; 87070; 87205; 93005; 94640; 94664; 96374; 96375; 96376; C1769; C9113; J0131; J0744; J1100; J1170; J1200; J1956; J2060; J2250; J2270; J2405; J2765; J2920; J3010; J3480; J7613; Q9967

== ENCOUNTER → 2016-08-14 | Day surgery (SDC) | payer OTHER ==
[~2016-08-14] VITALS: Ht 165.1 cm; Wt 94.8 kg
[~2016-08-14] MED LIST changes: +*PROMETHAZINE 25 MG/ML VIAL PERIprocedural use ONLY ONE; +*RESP: ALBUTEROL 2.5 MG/3 ML NEB (PRN) PERIprocedural Use ONLY NEB ONE; +ACETAMINOPHEN 1000 MG/100 ML VIAL IV ONE; +ACETAMINOPHEN 1000 MG/100 ML VIAL IV SCH; -ASPI81TA11 PO; +BUPIVACAINE/EPINEPHRINE 0.25% PF 30 ML VIAL INFIL ONE; +CIPR-9 PO; +DEXAMETHASONE SOD PHOS 4 MG/ML VIAL ONE; +DO NOT ADM ANY ANTICOAGULANT DRUGS XX PRN; +FAMOTIDINE 20 MG/2 ML VIAL ONE; +HYDROmorphone HCL PF 2 MG/ML VIAL ONE; +INSULIN HUMAN REGULAR 1,000 UNITS/10 ML VIAL SQ PRN; +KETOROLAC TROMETHAMINE 30 MG/ML (IVP) VIAL IV PUSH ONE; +KETOROLAC TROMETHAMINE 30 MG/ML (IVP) VIAL ONE; +LACTATED RINGER'S 1000 ML INJ 1,000 ML IV ONE; +LACTATED RINGER'S 1000 ML IV SCH; +LEVA500T PO; +LEVOFLOXACIN 750 MG/DEXTROSE 150 ML IV SCH; +LORazepam 2 MG/ML VIAL IV ONE; +LORazepam 2 MG/ML VIAL ONE; -MEDR4PAK3 PO; +METOPROLOL TARTRATE 25 MG TAB PO PRN; +METR-1 PO; +MIDAZOLAM HCL 2 MG/2 ML VIAL ONE; +MORPHINE SULFATE 4 MG/ML INJ IV PRN; -NAPR550 PO; +ONDANSETRON HCL 4 MG/2 ML VIAL IV PUSH PRN; +ONDANSETRON HCL 4 MG/2 ML VIAL ONE; +PRED10 PO; +PROPOFOL 200 MG/20 ML AMP IV ONE; -ROBA750T3 PO; +SODIUM CHLORID 0.9% 500 ML IV SCH; -TRAM50 PO; +fentaNYL CITRATE 250 MCG/5 ML AMP ONE; +methylPREDNISolone SOD SUCC 125 MG/2 ML VIAL IV ONE; +metroNIDAZOLE 500 MG INJ 100 ML IV ONE; +metroNIDAZOLE 500 MG INJ 100 ML IV SCH; +oxyCODONE/ACETAMINOPHEN 5 MG/325 MG TAB PO PRN
[2016-08-14 08:23] VITALS: BP_SYST 101; BP_SYST 95; BP_DIAS 59; BP_DIAS 60; PULSE 73; RESP 18; TEMP 98.5; O2SAT 95
--- NOTE | 2016-08-14 13:33 | PD.OP ---
cc: Rojelio Berger MD Operative Report Date of Surgery: Aug 14, 2016 Preoperative Diagnosis: (1) Acute cholecystitis Postoperative Diagnosis: (1) Acute cholecystitis Procedure: Laparoscopic cholecystectomy Lysis of adhesions >1 hr Anesthesia: PRIMO Surgeon: Rojelio Berger And Taxi Instructor Bus Trolley(s): Tori Irving Operation and Findings: Complications: None apparent EBL:200cc Operative findings: The patient had severe inflammation of the gallbladder. There were adhesions of transverse colon densely adherent to the gallbladder itself. There are multiple other adhesions with omentum. Procedure in detail: The patient was taken to the operating room and placed in the supine position. General endotracheal anesthesia was induced. The abdomen was prepped and draped in usual sterile fashion and a surgical timeout was performed to verify correct patient procedure and site. Appropriate perioperative antibiotics were administered. Local anesthetic was injected in the skin and subcutaneous tissue superior to the umbilicus and a 5 mm incision performed. The abdomen was entered using the Optiview 5 mm trocar with direct laparoscopic visualization. The abdomen was then insufflated to 15 mmHg with CO2 gas which the patient tolerated well. Next a 12 mm port was placed in the epigastrium and two 5 mm ports in the right upper quadrant and right lateral abdomen. The patient was placed in reverse Trendelenburg position and turned slightly to the left. Attention was turned to the right upper quadrant and the gallbladder was not immediately able to be visualized. There were multiple omental adhesions to the gallbladder fossa. The transverse colon was brought up to the gallbladder. Careful blunt dissection finally reveal the gallbladder itself. The gallbladder was distended and inflamed with extremely thick wall. The gallbladder was entered to decompress the gallbladder although not much bile was removed. There were small gallstones noted. There was some purulent fluid in the gallbladder bladder. Extensive lysis of adhesions and careful blunt dissection using multiple instruments including laparoscopic Kitners, suction-college instructor, [place] were used to further delineate the anatomy. Due to severe inflammation of the gallbladder was taken in a dome down fashion. Finally the neck of the gallbladder was transected with electrocautery window was clear that we are at an appropriate area away from the common bile duct. The gallbladder neck was secured with two 0 PDS Endoloops During further dissection the colon was carefully bluntly removed from the gallbladder. The right lateral trocar had been switched to 10 mm to allow entrance of an Endo Catch bag for any stones to be gathered. The gallbladder was then removed using an Endo Catch bag. The right upper quadrant was copiously irrigated and any small stones were removed. There was hemostasis at the liver bed. A 19 English round drain was placed through the right lower abdominal port and placed in the gallbladder fossa. The fascia at the 12 mm port site was closed with 0 Vicryl suture. Skin was closed with subcuticular 4-0 Monocryl as well as Dermabond. A total of 3 hours of careful dissection and lysis of adhesions was performed. The patient tolerated the procedure well and was extubated and taken to PACU in stable condition. All sponge and instrument counts were correct. Rojelio Berger MD Aug 14, 2016 13:33
--- NOTE | 2016-08-14 15:15 | RADRPT ---
EXAM DATE/TIME: 08/14/2016 14:50 [facility] COMPARISON: CHEST SINGLE AP, July 27, 2016, 8:52. INDICATIONS : Short of breath. MEDICAL HISTORY : Smoking. SURGICAL HISTORY : Cholecystectomy. ENCOUNTER: Initial ACUITY: 1 day PAIN SCORE: 0/10 LOCATION: Bilateral chest FINDINGS: AP view of the chest demonstrates a normal-sized cardiac silhouette. Lungs are underinflated with ate lectasis at the bases. No pneumothorax or airspace consolidation is appreciated. The bones demonstrat e no acute finding. There is soft tissue air along the right chest wall and right upper abdominal wal l and potentially in the right breast. CONCLUSION: 1. Underinflated examination with atelectasis at the lung bases. Otherwise, no acute cardiopulmonary abnormality is appreciated. 2. There is a right chest wall soft tissue air from an uncertain etiology. Suggest correlation with c linical history for any recent chest or abdomen procedures or potentially trauma. Miguel Vila MD on August 14, 2016 at 15:12 Board Certified Radiologist. This report was verified electronically.
[2016-08-14 17:00] VITALS: RESP 16
[2016-08-14 17:30] VITALS: BP 133/75; PULSE 80; TEMP 97.4; O2SAT 96
== END | disposition home or self-care (01) ==
LOC: HSDC 07:35
PROVIDERS: ATTEND Surgery
DX: K81.0 Acute cholecystitis (principal); K85.10 Biliary acute pancreatitis without necrosis or infection; K82.8 Other specified diseases of gallbladder; K66.0 Peritoneal adhesions (postprocedural) (postinfection)
CPT/HCPCS: 00790; 47562; 71010; 88304; 94150; 94664; J0131; J1100; J1170; J1885; J1956; J2250; J2405; J2550; J2930; J3010; J7120; J7613; J2060